=== PATIENT | female | born 1985 ===

== ENCOUNTER 2017-09-12 16:15 | Inpatient (IN) | payer OTHER ==
[~2017-09-12] VITALS: Ht 162.6 cm; Wt 75.3 kg
[2017-10-04] MEDS ORDERED: PRENATAL 19 TA1 EACH PO (17:52)
== END 2017-10-07 14:54 | DRG 775 ==
LOC: LDR 10-04 16:55 → OB/GYN 10-05 21:17 → LDR 10-08 16:14
PROC: 10E0XZZ Delivery of Products of Conception, External Approach (ICD-10-PCS; principal; 2017-10-05)
PROC: 0W8NXZZ Division of Female Perineum, External Approach (ICD-10-PCS; 2017-10-05)
PROC: 10907ZC Drainage of Amniotic Fluid, Therapeutic from Products of Conception, Via Natural or Artificial Opening (ICD-10-PCS; 2017-10-05)
PROC: 3E0P7VZ Introduction of Hormone into Female Reproductive, Via Natural or Artificial Opening (ICD-10-PCS; 2017-10-05)
PROC: 3E033VJ Introduction of Other Hormone into Peripheral Vein, Percutaneous Approach (ICD-10-PCS; 2017-10-05)
PROC: 4A1HXCZ Monitoring of Products of Conception, Cardiac Rate, External Approach (ICD-10-PCS; 2017-10-05)
DX: O71.4 Obstetric high vaginal laceration alone (principal); O41.03X0 Oligohydramnios, third trimester, not applicable or unspecified; Z3A.39 39 weeks gestation of pregnancy; Z37.0 Single live birth

== ENCOUNTER 2017-10-03 15:35 | Outpatient (CLI) | payer OTHER ==
[2017-10-04] MEDS ORDERED: PRENATAL 19 TA1 EACH PO (17:52)
== END 2017-10-03 16:00 | disposition home or self-care (01) ==
LOC: NST 15:35
DX: Z34.83 Encounter for supervision of other normal pregnancy, third trimester (principal)